=== PATIENT | female | born 1990 | race African-American/Black ===

== ENCOUNTER 2016-08-07 07:09 | Emergency (ER) | payer OTHER ==
[2016-08-07] MEDS ORDERED: ACETAMINOPHEN TAB 500 MG TAB PO STA (08:14)
--- NOTE | 2016-08-07 08:20 | ED ---
URI HPI - General Chief Complaint: Upper Respiratory Infection Stated Complaint: Cough/Dizziness Time Seen by Provider: 08/07/16 08:01 Source: patient, RN notes reviewed Mode of arrival: ambulatory Limitations: no limitations - History of Present Illness Initial Comments: 25-year-old female presents emergency Department with a chief complaint of cough cold and fever. Patient has been sick for the last day or so. She take Motrin yesterday. This we should not treat her fever. She denies any nausea vomiting. Chest feels sore and achy and fatigued. She denies any nausea vomiting this. Patient was concerned due to the continued symptoms such that this reevaluated.Patient denies any recent shortness of breath, chest pain, back pain, abdominal pain, nausea vomiting, numbness or tingling, dysuria or hematuria, constipation or diarrhea, headaches or visual changes, or any other current symptoms. - Related Data Home Medications Medication Instructions Recorded Confirmed Ibuprofen [Motrin] 800 mg PO Q8HR PRN 08/07/16 08/07/16 Previous Rx's Medication Instructions Recorded Oseltamivir [Tamiflu] 75 mg PO Q12HR #10 cap 08/07/16 Allergies Allergy/AdvReac Type Severity Reaction Status Date / Time Sulfa (Sulfonamide Allergy Rash/Hives Verified 08/07/16 07:47 Antibiotics) Review of Systems ROS Statement: Those systems with pertinent positive or pertinent negative responses have been documented in the HPI. ROS Other: All systems not noted in ROS Statement are negative. Past Medical History Past Medical History: No Reported History History of Any Multi-Drug Resistant Organisms: None Reported Past Surgical History: Section Past Psychological History: No Psychological Hx Reported Smoking Status: Never smoker Past Alcohol Use History: Occasional Past Drug Use History: None Reported - Past Family History Mother Family Medical History: No Reported History General Exam - General Exam Comments Initial Comments: 25-year-old female presents with chief complaint cough cold runny nose like symptoms. General exam: Alert, active, comfortable in no apparent distress Head: Normocephalic Eyes: Normal reaction of pupils, equal size, normal range of extraocular motion Ears: normal external ear canals, pink tympanic membranes with normal cone of light Nose: clear with pink turbinates Throat: no erythema or exudates with normal sized tonsils Neck: no masses, no nuchal rigidity Chest: no chest wall deformity Lungs: equal air entry with no crackles or wheeze CVS: S1 and S2 normal with no audible mumurs, regular rhythm Spine: no scoliosis or deformity Skin: no rashes Neurological: No focal deficits, tone is normal in all 4 extremities Limitations: no limitations Course Vital Signs 08/07/16 07:20 Temperature 101.9 F H Pulse Rate 122 H Respiratory 22 Rate Blood Pressure 111/73 O2 Sat by Pulse 98 Oximetry Medical Decision Making - Medical Decision Making 25-year-old female presents emergency Department chief complaint of cough cold runny nose like symptoms. Patient's insulin and chest x-ray review that did not show any acute process however there is most likely does have influenza to the daughter having and we will start her on prophylactic treatment. We discussed with mother and she is in agreement. We discussed with her.. Patient stated he understood all questions were answered. They will be discharged. - Lab Data Lab Results 08/07/16 Range/Units 07:40 Influenza Type A RNA Not Detected (Not Detectd) Influenza Type B (PCR) Not Detected (Not Detectd) - Radiology Data Radiology results: report reviewed, image reviewed Disposition Clinical Impression: Fever, Upper respiratory infection Disposition: HOME SELF-CARE Condition: Stable Instructions: Upper Respiratory Infection (ED) Additional Instructions: Please use medication as discussed. Please follow up with family doctor if symptoms have not improved over the next two days. Please return to the emergency room if your symptoms increase or worsen or for any other concerns. Prescriptions: Oseltamivir [Tamiflu] 75 mg PO Q12HR #10 cap Referrals: None,Stated [Primary Care Provider] - 1-2 days Michelle Butts MD [STAFF PHYSICIAN] - 1-2 days Time of Disposition: 10:03
--- NOTE | 2016-08-07 09:00 | XR ---
EXAMINATION TYPE: XR chest 2V DATE OF EXAM: 08/07/2016 8:55 AM COMPARISON: 10/10/2012 HISTORY: Cough TECHNIQUE: Frontal and lateral views of the chest are obtained. FINDINGS: There is no focal air space opacity, pleural effusion, or pneumothorax seen. The cardiac silhouette size is within normal limits. The osseous structures are intact. IMPRESSION: No acute cardiopulmonary process.
[2016-08-07 10:16] VITALS: BP 101/60; PULSE 115; RESP 18; TEMP 99.6
== END 2016-08-07 10:20 | disposition home or self-care (01) ==
LOC: EC 07:09
DX: J06.9 Acute upper respiratory infection, unspecified (principal); Z88.2 Allergy status to sulfonamides
CPT/HCPCS: 71020; 87502; 99283

== ENCOUNTER 2017-10-10 20:07 | Emergency (ER) | payer OTHER ==
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
[2017-10-10] MEDS ORDERED: ACETAMINOPHEN TAB 500 MG TAB PO STA (21:36)
--- NOTE | 2017-10-10 21:47 | XR ---
EXAMINATION TYPE: XR cervical spine limited DATE OF EXAM: 10/10/2017 COMPARISON: NONE HISTORY: Neck pain TECHNIQUE: 4 views FINDINGS: The vertebra have normal alignment. Posterior elements are intact. Disc spaces are fairly n ormal. Atlantoaxial facet joint is normal. There are no cervical ribs. IMPRESSION: Negative cervical spine exam.
[2017-10-10 22:10] VITALS: BP 118/68; PULSE 100; RESP 17; TEMP 98.3
== END 2017-10-10 22:15 | disposition home or self-care (01) ==
LOC: EC 20:07
DX: O26.892 Other specified pregnancy related conditions, second trimester (principal); M54.2 Cervicalgia; R10.30 Lower abdominal pain, unspecified; Z88.2 Allergy status to sulfonamides; Z3A.23 23 weeks gestation of pregnancy; V89.2XXA Person injured in unspecified motor-vehicle accident, traffic, initial encounter; Y92.410 Unspecified street and highway as the place of occurrence of the external cause
CPT/HCPCS: 72040; 99284

== ENCOUNTER 2017-10-10 22:20 | Outpatient (CLI) | payer OTHER ==
[2017-10-10 23:03] VITALS: BP 115/69; PULSE 96; RESP 16; TEMP 96.2
--- NOTE | 2017-10-17 08:43 | P.MSEPDOC ---
Presenting Problems - Arrival Data Date of Arrival on Unit: 10/10/17 Time of Arrival on Unit: 22:20 Mode of Transport: Ambulatory - Complaint OB-Reason for Admission/Chief Complaint: Other Comment: CVA Medical History - Information : 3 Para: 2 Term: 2 : 0 Abortions: Spontaneous or Elective: 0 Number of Living Children: 2 - Gestational Age Gestational Age by [place] (wks/days): 22 Weeks and 6 Days Review of Systems - Review of Systems Constitutional: No problems Breast: No problems ENT: No problems Cardiovascular: No problems Respiratory: No problems Gastrointestinal: No problems Genitourinary: No problems Musculoskeletal: No problems Neurological: No problems Skin: No problems Vital Signs - Temperature Temperature: 96.2 F Temperature Source: Temporal Artery Scan - Pulse Right Pulse Rate: 96 Pulse Assessment Method: Pulse Oximetry - Respirations Respiratory Rate: 16 Oxygen Delivery Method: Room Air O2 Sat by Pulse Oximetry: 100 - Blood Pressure Right Arm Blood Pressure: 115/69 Blood Pressure Mean: 84 Blood Pressure Source: Automatic Cuff Medical Screen Scoring (Pre) - Cervical Exam Dilation: Exam Deferred Effacement: Exam Deferred Membranes: Intact - Uterine Contractions Frequency: N/A Duration: N/A Intensity: N/A - Maternal Vital Signs Maternal Temperature: N/A Maternal Blood Pressure: N/A Signs of Preeclampsia: N/A Maternal Respirations: N/A - Pain Assessment Pain Location and Character: Lower, Back Pain Scale Used: Numeric (1 - 10) Pain Intensity: 1 Pain Management Goal: 0 Pain Description: Aching, Sore Pain Frequency: Intermittent Pain Duration Units: Hours Pain Behavior: Vocalization Pain Aggravating Factors: Position Non-Pharmacological Interventions: Heat, Position/Reposition, Relaxation Technique - Maternal Trauma Maternal Trauma: N/A - Total Score Total Score (Pre): 0 - Level of Risk Level of Risk: N/A Physician Notification (Pre) - Physician Notified Physician Notified Date: 10/10/17 Physician Notified Time: 22:46 Physician/Practitioner Notifed:: Dr. Vera Spoke With: Dr. Vera New Order Received: Yes (discharge home with follow up instructions.) Medical Screen Scoring (Post) - Cervical Exam Dilation: Exam Deferred Effacement: Exam Deferred Membranes: Intact - Uterine Contractions Frequency: N/A Duration: N/A Intensity: N/A - Maternal Vital Signs Maternal Temperature: N/A Maternal Blood Pressure: N/A Signs of Preeclampsia: N/A Maternal Respirations: N/A - Pain Assessment Pain Location and Character: Lower, Back Pain Scale Used: Numeric (1 - 10) Pain Intensity: 1 Pain Management Goal: 0 Pain Description: *Acute, Aching, Sore Pain Frequency: Intermittent Pain Duration Units: Hours Pain Behavior: Vocalization Pain Aggravating Factors: Position Non-Pharmacological Interventions: Heat, Position/Reposition - Maternal Trauma Maternal Trauma: N/A - Total Score Total Score (Post): 0 - Post Treatment Level of Risk Post Treatment Level of Risk: N/A Physician Notification (Post) - Physician Notified Physician Notified Date: 10/10/17 Physician Notified Time: 22:46 Physician/Practitioner Notified:: Dr. vera Spoke With: Dr. vera New Order Received: Yes (discharge home with instructions.) Disposition - Disposition OB Disposition: Discharge to home Discharge Date: 10/10/17 Discharge Time: 22:49 I agree with the RN Medical Screening Exam: Yes Risk & Benefit of care provided described in d/c instruction: Yes Diagnosis: LOW BACK PAIN
== END 2017-10-10 22:49 | disposition home or self-care (01) ==
LOC: FBPOP 22:20
PROVIDERS: ATTEND Obstetrics & Gynecology Obstetrics
DX: O99.89 Other specified diseases and conditions complicating pregnancy, childbirth and the puerperium (principal); M54.5 Low back pain; Z3A.22 22 weeks gestation of pregnancy
CPT/HCPCS: 99213

== ENCOUNTER 2018-02-03 10:05 | Inpatient (IN) | payer OTHER ==
[2018-01-30 14:34] VITALS: BMI 34.5
[2018-02-03] MEDS ORDERED: ceFAZolin IN SWFI 2 GM/20 ML SYRINGE IVP ONE (10:20)
[2018-02-03] MEDS ORDERED: CITRIC ACID-SODIUM CITRATE 15 ML CUP PO ONE (10:20)
[2018-02-03 11:02] LABS: Basophils % (A) 0 %; Eosinophils # (A) 0.2 k/uL (0-0.7); Eosinophils % (A) 1 %; HGB 9.9 gm/dL (11.4-16.0); Lymphocytes # (A) 1.5 k/uL (1.0-4.8); Lymphocytes % (A) 11 %; MCH 27.3 pg (25.0-35.0); MCV 82.7 fL (80.0-100.0); Mean Platelet Volume 7.1; Monocytes # (A) 0.7 k/uL (0-1.0); Monocytes % (A) 5 %; Neutrophils # (A) 10.9 k/uL (1.3-7.7); Neutrophils % (A) 80 %; Platelet Count 260 k/uL (150-450); RBC 3.62 m/uL (3.80-5.40); WBC 13.5 k/uL (3.8-10.6)
[2018-02-03] MEDS ORDERED: NALBUPHINE 10 MG/ML VIAL (10ML MDV) ONE (12:03)
[2018-02-03] MEDS ORDERED: ONDANSETRON 4 MG/2 ML VIAL ONE (12:03)
[2018-02-03] MEDS ORDERED: KETOROLAC 30 MG/ML 1 ML VIAL ONE (12:03)
[2018-02-03] MEDS ORDERED: OXYTOCIN 10 UNIT/ML 1 ML VIAL ONE (12:03)
[2018-02-03] MEDS ORDERED: MORPHINE SULFATE (PF) 0.3 MG/0.3 ML SYR ONE (12:03)
[2018-02-03] MEDS ORDERED: DEXAMETHASONE SOD PHOS (MDV) 100 MG/10 ML VIAL ONE (12:03)
[2018-02-03] MEDS ORDERED: PHENYLEPHRINE-0.9% NACL SYG 1 MG/10 ML SYRINGE ONE (12:03)
--- NOTE | 2018-02-03 12:15 | P.HPOB ---
History of Present Illness H&P Date: 02/03/18 Chief Complaint: Here for elective repeat and tubal ligation This is a 27 rolled white female 3 para 2002 EDC 02/07/2018 at 39-3/7 weeks' gestation. Patient has had 2 previous sections, presents today for repeat at term with tubal ligation. Fetus is been active throughout the . She denies uterine bleeding or fluid leakage. Past medical history is significant for exercise-induced asthma. Past surgical history C-sections 2011 2015. Current medications vitamins daily. ALLERGIES include seasonal ALLERGIES and Bactrim to which reports hives. Family history is significant for diabetes. Social history patient is single, her boyfriend is present and involved. She has never been a smoker. She denies alcohol or drug use. history significant for blood type O+, rubella status immune. [place] strep cultures are positive. One-hour Glucola 132. Gonorrhea and chlamydia cultures, HIV testing, urine culture, hepatitis B surface antigen all negative. On exam this is a pleasant black female who is 5 foot 1-1/2 inches, 186 pounds, vital signs are stable and she is afebrile. The general physical exam is within normal limits. heart rate is consistent with reactive NST. Impression: 39-3/7 weeks intrauterine , here for repeat low transverse section and tubal ligation. Group B strep cultures positive. Plan: Antibiotics have been given. We will proceed with repeat low transverse section and tubal ligation per her request. All questions addressed. Review of Systems Constitutional: Reports as per HPI Past Medical History Past Medical History: No Reported History, Asthma History of Any Multi-Drug Resistant Organisms: None Reported Past Surgical History: Section Additional Past Surgical History / Comment(s): C-SEC X 2 Past Anesthesia/Blood Transfusion Reactions: Motion Sickness, Postoperative Nausea & Vomiting (PONV) Past Psychological History: No Psychological Hx Reported Smoking Status: Never smoker Past Alcohol Use History: Occasional Additional Past Alcohol Use History / Comment(s): NONE DURING Past Drug Use History: None Reported - Past Family History Mother Family Medical History: No Reported History Medications and Allergies Home Medications Medication Instructions Recorded Confirmed Type Pnv No.95/Ferrous Fum/Folic AC 1 tab PO DAILY 10/10/17 02/03/18 History [ Multivitamin Tablet] Allergies Allergy/AdvReac Type Severity Reaction Status Date / Time Sulfa (Sulfonamide Allergy Rash/Hives Verified 02/03/18 10:19 Antibiotics) Exam Vital Signs Temp Pulse Resp BP Pulse Ox 02/03/18 10:26 96.4 F L 118 H 18 136/82 98 Intake and Output 02/02/18 02/03/18 02/03/18 22:59 06:59 14:59 Other: Weight 84.368 kg See dictation under HPI please Results Result Diagrams: 02/03/18 10:45 Abnormal Lab Results - Last 24 Hours (Table) 02/03/18 Range/Units 10:45 WBC 13.5 H (3.8-10.6) k/uL RBC 3.62 L (3.80-5.40) m/uL Hgb 9.9 L (11.4-16.0) gm/dL Hct 30.0 L (34.0-46.0) % Neutrophils # 10.9 H (1.3-7.7) k/uL Assessment and Plan Plan: Here for repeat low transverse section and tubal ligation with Filshie clips. Antibiotics given for positive group B strep status. Time with Patient: Less than 30
[2018-02-03] MEDS ORDERED: NALOXONE 0.4 MG/ML 1 ML VIAL IV PRN ×2 (12:42→12:51)
[2018-02-03] MEDS ORDERED: MORPHINE SULFATE 4 MG/ML SYRINGE IVP PRN (12:42)
[2018-02-03] MEDS ORDERED: diphenhydrAMINE 50 MG/ML 1 ML VIAL IVP PRN ×3 (12:42→12:51)
[2018-02-03] MEDS ORDERED: ONDANSETRON 4 MG/2 ML VIAL IVP PRN ×2 (12:42→12:51)
[2018-02-03] MEDS ORDERED: diphenhydrAMINE 50 MG CAP PO PRN (12:51)
[2018-02-03] MEDS ORDERED: METOCLOPRAMIDE 5 MG/ML 2 ML VIAL IVP PRN (12:51)
[2018-02-03] MEDS ORDERED: ZOLPIDEM 5 MG TAB PO PRN (12:51)
[2018-02-03] MEDS ORDERED: diphenhydrAMINE 25 MG CAP PO PRN (12:51)
--- NOTE | 2018-02-03 12:51 | P.OP ---
Date of Procedure: 02/03/18 Preoperative Diagnosis: 39-3/7 weeks intrauterine , 2 previous sections, positive group B strep cultures, undesired fertility Postoperative Diagnosis: Liveborn male , nuchal cord 1, normal-appearing tubes and ovaries bilaterally Procedure(s) Performed: Repeat low transverse section, tubal ligation Anesthesia: spinal Surgeon: Gogo Mcmanus Manager [employer]: Alejandro Phipps Estimated Blood Loss (ml): 600 IV fluids (ml): 1,000 Urine output (ml): 200 Pathology: none sent Condition: stable Disposition: PACU Description of Procedure: Antibiotics are given. Roth catheter is placed to direct drainage. Patient is brought back to the operating suite where a spinal analgesia with Duramorph is provided. The abdomen is prepped and draped in the usual sterile fashion. The appropriate timeout is performed to assure proper patient and procedural identification. The analgesia is checked and noted to be adequate. A repeat low transverse skin incision is made in this is carried down through the subcutaneous tissue to the fascia. Fascia is isolated, scored and extended bilaterally with curved Foster scissors. Peritoneum is next identified and incised, there is no bowel or bladder involvement. Bladder flap is created with Metzenbaum scissors and at all times the bladder is Well from the operative field to avoid bladder and/or ureteral injury. The lower uterine segment is noted to be quite thin. A repeat low transverse uterine incision is made in this is extended bluntly. Artificial amniorrhexis reveals clear fluid. Infant's head is delivered in the occiput anterior position and there is a nuchal cord 1 that is also reduced. The shoulders are easily delivered and the patient is officially delivered of a liveborn male at 12-3 hours. Umbilical cord is doubly clamped and ligated, he is handed to waiting nurses for evaluation where scores of 9 and 9 at one and 5 minutes respectively were given. The placenta delivers manually, it is inspected and noted to be intact with trivascular cord at 1224 hours. At this time the uterus is externalized. It is swept clean with a sterile sponge to avoid any retained products of conception. The uterus is closed in a one step full-thickness running locking stitch of 0 Vicryl for excellent reapproximation and hemostasis. Bilateral tubes and ovaries are inspected and noted to be normal. Filshie clips are placed in the isthmic portion of both tubes, with care to traverse the entire diameter of the tubes into the mesal salpinx. Please note that fimbriated ends are identified for proper placement. Uterus is then is back into the abdominal cavity after suction with guard is used to clear out residual fluid. Bilateral gutters are inspected and cleaned. Once again hemostasis is noted to be excellent. Peritoneum was allowed close by secondary intention. Fascia is closed in a running stitch of 0 Vicryl with over ligation in the midline. Subcutaneous tissue is irrigated, clean and dry. The skin is closed with a 4-0 undyed Monocryl stitch in a subcuticular fashion for excellent reapproximation. Steri-Strips and Mastisol are applied to the wound. Roth is noted to be draining clear urine. All sponge needle and enhancement counts are correct at the end of the procedure. Patient is brought back to recovery room in excellent condition with stable vital signs including blood pressure 120/62, pulse 97, 100% O2 saturation. weighs 3790 g or 8 lbs. 6 oz. They are requesting circumcision further infant son.
[2018-02-03] MEDS: LACTATED RINGERS 1,000 ML IV SCH (15:52)
[2018-02-03] MEDS: KETOROLAC 30 MG/ML 1 ML VIAL IVP PRN (19:30)
[2018-02-03] MEDS: SENNOSIDES-DOCUSATE SODIUM 1 EACH TAB PO SCH (19:31)
[2018-02-04] MEDS: LACTATED RINGERS 1,000 ML IV SCH ×2 (00:30→00:38)
[2018-02-04] MEDS: KETOROLAC 30 MG/ML 1 ML VIAL IVP PRN (01:57)
--- NOTE | 2018-02-04 06:21 | P.PN ---
Progress Note - Text Progress Note Date: 02/04/18 20 61 female status post section with Duramorph spinal. Postop day 1. Patient doing well resting comfortably minimal pruritus, ambulating well. No motor/sensory deficits
[2018-02-04 07:45] LABS: Basophils % (A) 0 %; Eosinophils % (A) 0 %; HCT 28.1 % (34.0-46.0); HGB 8.7 gm/dL (11.4-16.0); Hypochromasia Slight; Lymphocytes # (A) 1.5 k/uL (1.0-4.8); Lymphocytes % (A) 10 %; MCH 26.5 pg (25.0-35.0); MCV 85.4 fL (80.0-100.0); Mean Platelet Volume 7.9; Monocytes % (A) 6 %; Neutrophils # (A) 12.2 k/uL (1.3-7.7); Neutrophils % (A) 82 %; Platelet Count 237 k/uL (150-450); RBC 3.29 m/uL (3.80-5.40); RDW 15.3 % (11.5-15.5); WBC 14.9 k/uL (3.8-10.6)
[2018-02-04] MEDS: ACETAMINOPHEN TAB 325 MG TAB PO PRN ×3 (07:48→16:04)
[2018-02-04] MEDS: SENNOSIDES-DOCUSATE SODIUM 1 EACH TAB PO SCH ×2 (07:49→19:48)
--- NOTE | 2018-02-04 09:34 | P.PN ---
Subjective Progress Note Date: 02/04/18 Positive flatus, pain well controlled, no complaints. Objective - Vital Signs Vital signs: Vital Signs Temp 97.9 F 02/04/18 08:00 Pulse 72 02/04/18 08:00 Resp 14 02/04/18 08:00 BP 105/63 02/04/18 08:00 Pulse Ox 99 02/04/18 05:00 Intake & Output 02/03/18 02/04/18 02/04/18 18:59 06:59 18:59 Intake Total 75 100 Output Total 200 2300 400 Balance -125 -2200 -400 Weight 84.368 kg Intake: Oral 75 100 Output: Urine 2300 400 Uretheral (Roth) 800 Emesis 200 - Constitutional General appearance: Present: average body habitus, cooperative - EENT Eyes: Present: PERRLA ENT: Present: hearing grossly normal - Neck Neck: Present: normal ROM - Respiratory Respiratory: bilateral: CTA - Cardiovascular Rhythm: regular - Gastrointestinal Gastrointestinal Comment(s): Fundus firm, mobile, symmetric, 18 week size. - Genitourinary Genitourinary Comment(s): Incision clean and dry, intact, Steri-Strips applied. - Neurologic Neurologic: Present: CNII-XII intact - Musculoskeletal Musculoskeletal: Present: gait normal, strength equal bilaterally - Psychiatric Psychiatric: Present: A&O x's 3, appropriate affect, intact judgment & insight - Labs CBC & Chem 7: 02/04/18 07:30 Labs: Abnormal Lab Results - Last 24 Hours (Table) 02/03/18 02/04/18 Range/Units 10:45 07:30 WBC 13.5 H 14.9 H (3.8-10.6) k/uL RBC 3.62 L 3.29 L (3.80-5.40) m/uL Hgb 9.9 L 8.7 L (11.4-16.0) gm/dL Hct 30.0 L 28.1 L (34.0-46.0) % Neutrophils # 10.9 H 12.2 H (1.3-7.7) k/uL Assessment and Plan Assessment: Doing well postoperative day #1 Plan: Continue postoperative care. Circumcision performed. Likely discharge home tomorrow. Time with Patient: Less than 30
[2018-02-04] MEDS: LORATADINE-PSEUDOEPH 5-120 MG 1 EACH TAB.ER.12H PO PRN (11:34)
[2018-02-04] MEDS: IBUPROFEN 600 MG TAB PO PRN (17:04)
[2018-02-04] MEDS: HYDROcodone/APAP 5-325MG 1 EACH TAB PO PRN ×2 (18:35→23:36)
[2018-02-05] MEDS: LORATADINE-PSEUDOEPH 5-120 MG 1 EACH TAB.ER.12H PO PRN (00:29)
[2018-02-05] MEDS: IBUPROFEN 600 MG TAB PO PRN ×2 (06:37→23:28)
--- NOTE | 2018-02-05 08:23 | P.PN ---
Subjective Progress Note Date: 02/05/18 Principal diagnosis: Postoperative day number 2 Positive flatus, shoulder pain. Abdomen softly distended. Objective - Vital Signs Vital signs: Vital Signs Temp 97.7 F 02/05/18 07:49 Pulse 74 02/05/18 07:49 Resp 18 02/05/18 07:49 BP 136/84 02/05/18 07:49 Pulse Ox 99 02/04/18 05:00 Intake & Output 02/04/18 02/05/18 02/05/18 18:59 06:59 18:59 Output Total 1300 Balance -1300 Output: Urine 1300 Other: # Voids 2 - Constitutional General appearance: Present: average body habitus, cooperative - EENT Eyes: Present: PERRLA ENT: Present: hearing grossly normal - Neck Neck: Present: normal ROM - Respiratory Respiratory: bilateral: CTA - Cardiovascular Rhythm: regular - Gastrointestinal Gastrointestinal Comment(s): Abdomen softly distended, tympanic. Active bowel sounds. Fundus firm, midline , at the umbilicus, symmetric and nontender. General gastrointestinal: Present: normal bowel sounds - Integumentary Integumentary: Present: normal - Neurologic Neurologic: Present: CNII-XII intact - Musculoskeletal Musculoskeletal: Present: gait normal, strength equal bilaterally - Psychiatric Psychiatric: Present: A&O x's 3, appropriate affect, intact judgment & insight - Labs CBC & Chem 7: 02/04/18 07:30 Assessment and Plan Assessment: Postoperative day #2, doing well. Anemia noted. Plan: Begin ferrous sulfate twice daily. Abdominal binder. Continue postoperative care. Likely discharge home tomorrow. Time with Patient: Less than 30
[2018-02-05] MEDS: ACETAMINOPHEN TAB 325 MG TAB PO PRN ×2 (10:21→19:59)
[2018-02-05] MEDS: SENNOSIDES-DOCUSATE SODIUM 1 EACH TAB PO SCH ×2 (10:21→19:59)
[2018-02-05] MEDS ORDERED: IBUPROFEN 800 MG TAB PO PRN (15:18)
[2018-02-05 15:45] LABS: Basophils % (A) 0 %; Eosinophils # (A) 0.3 k/uL (0-0.7); Eosinophils % (A) 2 %; HCT 32.6 % (34.0-46.0); HGB 10.2 gm/dL (11.4-16.0); Hypochromasia Slight; Lymphocytes # (A) 1.3 k/uL (1.0-4.8); Lymphocytes % (A) 8 %; MCH 26.9 pg (25.0-35.0); MCHC 31.2 g/dL (31.0-37.0); MCV 86.2 fL (80.0-100.0); Monocytes # (A) 0.9 k/uL (0-1.0); Monocytes % (A) 6 %; Neutrophils # (A) 13.1 k/uL (1.3-7.7); Neutrophils % (A) 83 %; Platelet Count 268 k/uL (150-450); RBC 3.78 m/uL (3.80-5.40); RDW 15.1 % (11.5-15.5); WBC 15.7 k/uL (3.8-10.6)
[2018-02-05] MEDS: SIMETHICONE 80 MG CHEWABLE PO SCH ×2 (15:52→20:05)
[2018-02-05 15:55] LABS: Potassium 4.2 mmol/L (3.5-5.1)
[2018-02-05 16:17] VITALS: RESP 16
[2018-02-05] MEDS ORDERED: FERROUS SULFATE 325 MG TAB PO SCH (17:30)
[2018-02-06] MEDS: ACETAMINOPHEN TAB 325 MG TAB PO PRN ×2 (03:19→08:41)
[2018-02-06] MEDS: IBUPROFEN 600 MG TAB PO PRN (06:11)
--- NOTE | 2018-02-06 07:40 | P.DS ---
Providers Date of admission: 02/03/18 10:05 Expected date of discharge: 02/06/18 Attending physician: Gogo Mcmanus Primary care physician: Stated None Hospital Course: This is a 25-year-old white female 3 para 2002 EDC 02/07/2018 who presented at 39-3/7 weeks' gestation. Patient had a history of 2 previous sections and plan was for repeat section with tubal ligation. was essentially unremarkable, group B strep cultures positive, blood type O+, rubella status immune. Please see my dictated history and physical for details. She underwent a repeat low transverse section with tubal ligation. Surgery was unremarkable, estimated blood loss 600 mL's. There was a nuchal cord 1 around the neck of a liveborn male . His scores were 9 and 9 at one and 5 minutes respectively. He weighed 3790 g or 8 lbs. 6 oz. Please see my dictated operative note for details. This morning the patient is doing well. She had a mild postoperative ileus that has resolved. She is passing flatus and has had 2 small bowel movements. She is tolerating regular food and pain is well controlled using Motrin products. Her bleeding is minimal, incision is clean and dry and intact with Steri-Strips applied. Fundus is firm and in the midline, symmetric and 18 week size. Fonda infant is doing well and has been circumcised. Patient is therefore being discharged home this morning in very good condition. She will follow-up with me in the office in 2 weeks for incision check. I have reminded her no intercourse, tampons or douching. She will use over-the- counter ibuprofen, 200 mg pills, 3 every 6 hours as needed. I've asked her to call with any fevers shakes or chills, foul smelling or copious lochia, with the passage of large blood clots, with any pain not alleviated by over-the- counter Motrin, or indeed with any concerns. Patient Condition at Discharge: Good Plan - Discharge Summary Discharge Rx Participant: Yes New Discharge Prescriptions: No Action Pnv No.95/Ferrous Fum/Folic AC [ Multivitamin Tablet] 1 tab PO DAILY Discharge Medication List Pnv No.95/Ferrous Fum/Folic AC [ Multivitamin Tablet] 1 tab PO DAILY [History] Follow up Appointment(s)/Referral(s): Gogo Mcmanus MD [STAFF PHYSICIAN] - 2 Weeks Discharge Disposition: HOME SELF-CARE
[2018-02-06 08:39] VITALS: BP 126/77; PULSE 80; TEMP 97.7
[2018-02-06] MEDS: SENNOSIDES-DOCUSATE SODIUM 1 EACH TAB PO SCH (08:40)
--- NOTE | 2018-02-10 11:35 | CDI ---
Last Revision, May 2017 Documentation Clarification Form Date: 02/10/18 From: Brenda Fink Lydia Hernandez, [employer] Hours-8:30 am & 5 pm Tommy Admit Date: 02/03/2018 10:05:00 AM Patient Name: Alisson Dickinson Visit Number: [id number] Discharge Date: 02/06/18 ATTENTION: The Clinical Documentation Specialists (CDI) and [facility] Coding Staff appreciate your assistance in clarifying documentation. Please respond to the clarification below the line at the bottom and electronically sign. The CDI & [facility] Coding staff will review the response and follow-up if needed. Please note: Queries are made part of the Legal Health Record. If you have any questions, please contact the author of this message via ITS. Gogo Mcleod MD Mild post-operative ileus is documented in the discharge summary. Patients Admitting Diagnosis: repeat c/s Post-Operative Diagnosis: repeat c/s Procedure performed: C/S No NGT, no x-rays, took 100% on ate 100% of breakfast, 75% of lunch with an emesis and then placed on clear liquid diet. BS and flatus documented in each progress note. In order to accurately reflect this patients severity of illness, please clarify if the post-operative diagnosis of ileus is: An expected post-procedural or post-surgical condition; Integral to the procedure; Inherent to the procedure; An unexpected post-procedural or post-surgical condition related to surgical care; Other, please specify Unable to determine Please continue to document in your progress notes and discharge summary in order to capture severity of illness and risk of mortality. Include clinical findings that support your diagnosis. _Mild post operative ileus diagnosis was suggested secondary to clinical presentation, distended abdomen, tympanic to percussion, and complaint of abdomenal pain eventually alleviated by passage of flatus and air along with application of an abdomenal binder. Thank you MTDD
== END 2018-02-06 12:00 | disposition home or self-care (01) | DRG 765 ==
LOC: 4FBP 10:05
PROVIDERS: ADMIT Obstetrics & Gynecology; ATTEND Obstetrics & Gynecology
PROC: 0UL70CZ Occlusion of Bilateral Fallopian Tubes with Extraluminal Device, Open Approach (ICD-10-PCS; 2018-02-03)
PROC: 10D00Z1 Extraction of Products of Conception, Low, Open Approach (ICD-10-PCS; principal; 2018-02-03 12:03)
DX: O34.211 Maternal care for low transverse scar from previous cesarean delivery (principal); K91.89 Other postprocedural complications and disorders of digestive system; K56.7 Ileus, unspecified; D64.9 Anemia, unspecified; O99.02 Anemia complicating childbirth; O69.81X0 Labor and delivery complicated by cord around neck, without compression, not applicable or unspecified; O99.52 Diseases of the respiratory system complicating childbirth; O99.824 Streptococcus B carrier state complicating childbirth; O75.82 Onset (spontaneous) of labor after 37 completed weeks of gestation but before 39 completed weeks gestation, with delivery by (planned) cesarean section; J30.2 Other seasonal allergic rhinitis; N85.8 Other specified noninflammatory disorders of uterus; L29.9 Pruritus, unspecified; Z30.2 Encounter for sterilization; Z37.0 Single live birth; Z3A.39 39 weeks gestation of pregnancy; Z88.2 Allergy status to sulfonamides; Z91.048 Other nonmedicinal substance allergy status; Z83.3 Family history of diabetes mellitus; Z79.899 Other long term (current) drug therapy
CPT/HCPCS: 80051; 85025; 86850; 86900; 86901; 94760

== ENCOUNTER 2018-11-19 08:09 | Emergency (ER) | payer OTHER ==
[2018-11-19 08:19] VITALS: RESP 18; TEMP 98.1
[2018-11-19] MEDS ORDERED: SODIUM CHLORIDE 0.9% 1,000 ML IV STA (08:28)
[2018-11-19] MEDS ORDERED: METOCLOPRAMIDE 5 MG/ML 2 ML VIAL IVP STA (08:33)
[2018-11-19] MEDS ORDERED: MAG HYDROX/AL HYDROX/SIMETH 30 ML, HYOSCYAMINE ELIXIR 10 ML, CIMETIDINE HCL 300 MG, LID... PO STA ×4 (08:39)
--- NOTE | 2018-11-19 08:42 | ED ---
General Adult HPI - General Chief complaint: Nausea/Vomiting/Diarrhea Stated complaint: NVD Time Seen by Provider: 11/19/18 08:23 Source: patient Mode of arrival: ambulatory Limitations: no limitations - History of Present Illness Initial comments: Dictation was produced using nPicker dictation software. please excuse any grammatical, word or spelling errors. Chief Complaint: 28-year-old female presents with epigastric abdominal pain, nausea and vomiting. History of Present Illness: Is a 28-year-old female presents with epigastric abdominal pain, nausea and vomiting. Patient reports that she woke up with the symptoms. States she had an episode similar to this a couple weeks ago. Patient had episode of diarrhea at that time. Patient has been having flulike illness for the last 2-3 days. Patient reports that her emesis is non-bloody however does have some bilious characteristic to it. She does report that the pain is epigastric. Denies any radiation of symptoms. Denies any constitutional symptoms. No overt sick contacts. History of tubal ligation she is 8 months . The ROS documented in this emergency department record has been reviewed and confirmed by me. Those systems with pertinent positive or negative responses have been documented in the HPI. All other systems are other negative and/or noncontributory. PHYSICAL EXAM: General Impression: Alert and oriented x3, not in acute distress HEENT: Normocephalic atraumatic, extra-ocular movements intact, pupils equal and reactive to light bilaterally, mucous membranes moist. Cardiovascular: Heart regular rate and rhythm, S1&S2 audible, no murmurs, rubs or gallops Chest: Lungs clear to auscultation bilaterally, no rhonchi, no wheeze, no rales Abdomen: Bowel sounds present, abdomen soft, mild epigastric tenderness to palpation, non-distended, no organomegaly Musculoskeletal: Pulses present and equal in all extremities, no peripheral edema Motor: no focal deficits noted Neurological: CN II-XII grossly intact, no focal motor or sensory deficits noted Skin: Intact with no visualized rashes Psych: Normal affect and mood ED course: 28-year-old female clinical presentation consistent with gastroenteritis. Heart rate of 115, worse vital signs within acceptable limits. Laboratory evaluation obtained. Leukocytosis of 15.9 with secondary to stress. Metabolic panel is unremarkable. Urinalysis negative. test is negative. Abdominal x-ray shows findings to suggest ileus however patient is having multiple diarrhea episodes. Clinically speaking patient's symptoms reflective of vital gastroenteritis. Patient given intravenous fluids and antinausea medications per she is observed in emergency department for several hours. Patient reevaluated with movement of symptoms. Patient discharged. She is counseled on adequate fluid hydration. Patient's symptoms are likely self- limiting and should improve over the next couple days. Patient sent home with antinausea medications. - Related Data Previous Rx's Medication Instructions Recorded Ondansetron Odt [Zofran Odt] 4 mg PO Q8HR PRN #12 tab 11/19/18 Allergies Allergy/AdvReac Type Severity Reaction Status Date / Time Sulfa (Sulfonamide Allergy Rash/Hives Verified 11/19/18 08:53 Antibiotics) Review of Systems ROS Statement: Those systems with pertinent positive or pertinent negative responses have been documented in the HPI. ROS Other: All systems not noted in ROS Statement are negative. Past Medical History Past Medical History: Asthma History of Any Multi-Drug Resistant Organisms: None Reported Past Surgical History: Section, Tubal Ligation Additional Past Surgical History / Comment(s): C-SEC X 3 Past Anesthesia/Blood Transfusion Reactions: Motion Sickness, Postoperative Nausea & Vomiting (PONV) Past Psychological History: No Psychological Hx Reported Smoking Status: Never smoker Past Alcohol Use History: Occasional Past Drug Use History: None Reported - Past Family History Mother Family Medical History: No Reported History General Exam Limitations: no limitations Course Vital Signs 11/19/18 11/19/18 11/19/18 08:17 09:19 10:13 Temperature 98.1 F Pulse Rate 115 H 94 92 Respiratory 18 18 Rate Blood Pressure 113/72 105/72 O2 Sat by Pulse 98 100 Oximetry Medical Decision Making - Lab Data Result diagrams: 11/19/18 08:50 11/19/18 08:50 Lab Results 11/19/18 11/19/18 11/19/18 Range/Units 08:50 08:50 08:50 WBC 15.9 H (3.8-10.6) k/uL RBC 4.76 (3.80-5.40) m/uL Hgb 13.4 (11.4-16.0) gm/dL Hct 40.6 (34.0-46.0) % MCV 85.4 (80.0-100.0) fL MCH 28.3 (25.0-35.0) pg MCHC 33.1 (31.0-37.0) g/dL RDW 13.6 (11.5-15.5) % Plt Count 371 (150-450) k/uL Neutrophils % 89 % Lymphocytes % 5 % Monocytes % 3 % Eosinophils % 1 % Basophils % 0 % Neutrophils # 14.2 H (1.3-7.7) k/uL Lymphocytes # 0.9 L (1.0-4.8) k/uL Monocytes # 0.5 (0-1.0) k/uL Eosinophils # 0.2 (0-0.7) k/uL Basophils # 0.0 (0-0.2) k/uL Sodium 141 (137-145) mmol/L Potassium 4.2 (3.5-5.1) mmol/L Chloride 105 (98-107) mmol/L Carbon Dioxide 24 (22-30) mmol/L Anion Gap 12 mmol/L BUN 10 (7-17) mg/dL Creatinine 0.63 (0.52-1.04) mg/dL Est GFR (CKD-EPI)AfAm >90 (>60 ml/min/1.73 sqM) Est GFR (CKD-EPI)NonAf >90 (>60 ml/min/1.73 sqM) Glucose 98 (74-99) mg/dL Calcium 9.5 (8.4-10.2) mg/dL Total Bilirubin 0.5 (0.2-1.3) mg/dL AST 20 (14-36) U/L ALT 16 (9-52) U/L Alkaline Phosphatase 85 (38-126) U/L Total Protein 8.2 (6.3-8.2) g/dL Albumin 4.9 (3.5-5.0) g/dL Lipase 53 (23-300) U/L Urine Color Urine Appearance (Clear) Urine pH (5.0-8.0) Ur Specific [place] (1.001-1.035) Urine Protein (Negative) Urine Glucose (UA) (Negative) Urine Ketones (Negative) Urine Blood (Negative) Urine Nitrite (Negative) Urine Bilirubin (Negative) Urine Urobilinogen (<2.0) mg/dL Ur Leukocyte Esterase (Negative) Urine HCG, Qual Not Detected (Not Detectd) 11/19/18 Range/Units 08:50 WBC (3.8-10.6) k/uL RBC (3.80-5.40) m/uL Hgb (11.4-16.0) gm/dL Hct (34.0-46.0) % MCV (80.0-100.0) fL MCH (25.0-35.0) pg MCHC (31.0-37.0) g/dL RDW (11.5-15.5) % Plt Count (150-450) k/uL Neutrophils % % Lymphocytes % % Monocytes % % Eosinophils % % Basophils % % Neutrophils # (1.3-7.7) k/uL Lymphocytes # (1.0-4.8) k/uL Monocytes # (0-1.0) k/uL Eosinophils # (0-0.7) k/uL Basophils # (0-0.2) k/uL Sodium (137-145) mmol/L Potassium (3.5-5.1) mmol/L Chloride (98-107) mmol/L Carbon Dioxide (22-30) mmol/L Anion Gap mmol/L BUN (7-17) mg/dL Creatinine (0.52-1.04) mg/dL Est GFR (CKD-EPI)AfAm (>60 ml/min/1.73 sqM) Est GFR (CKD-EPI)NonAf (>60 ml/min/1.73 sqM) Glucose (74-99) mg/dL Calcium (8.4-10.2) mg/dL Total Bilirubin (0.2-1.3) mg/dL AST (14-36) U/L ALT (9-52) U/L Alkaline Phosphatase (38-126) U/L Total Protein (6.3-8.2) g/dL Albumin (3.5-5.0) g/dL Lipase (23-300) U/L Urine Color Yellow Urine Appearance Clear (Clear) Urine pH 5.5 (5.0-8.0) Ur Specific [place] 1.030 (1.001-1.035) Urine Protein Trace H (Negative) Urine Glucose (UA) Negative (Negative) Urine Ketones 2+ H (Negative) Urine Blood Negative (Negative) Urine Nitrite Negative (Negative) Urine Bilirubin Negative (Negative) Urine Urobilinogen <2.0 (<2.0) mg/dL Ur Leukocyte Esterase Negative (Negative) Urine HCG, Qual (Not Detectd) Disposition Clinical Impression: Gastroenteritis Disposition: HOME SELF-CARE Condition: Good Instructions (If sedation given, give patient instructions): Acute Nausea and Vomiting (ED), Acute Diarrhea (ED) Prescriptions: Ondansetron Odt [Zofran Odt] 4 mg PO Q8HR PRN #12 tab PRN Reason: Nausea Is patient prescribed a controlled substance at d/c from ED?: No Referrals: None,Stated [Primary Care Provider] - 1-2 days Time of Disposition: 10:27
[2018-11-19 09:07] LABS: Appearance,Urine Clear (Clear); Bilirubin,Urine Negative (Negative); Blood,Urine Negative (Negative); Color,Urine Yellow; Glucose,Urine (UA) Negative (Negative); Ketones,Urine 2+ (Negative); Leukocyte Esterase,Urine Negative (Negative); Nitrite,Urine Negative (Negative); PH, Urine 5.5 (5.0-8.0); Protein,Urine Trace (Negative); Urobilinogen,Urine <2.0 mg/dL (<2.0)
[2018-11-19 09:09] LABS: Basophils % (A) 0 %; Eosinophils # (A) 0.2 k/uL (0-0.7); Eosinophils % (A) 1 %; HCT 40.6 % (34.0-46.0); HGB 13.4 gm/dL (11.4-16.0); Lymphocytes # (A) 0.9 k/uL (1.0-4.8); Lymphocytes % (A) 5 %; MCH 28.3 pg (25.0-35.0); MCHC 33.1 g/dL (31.0-37.0); MCV 85.4 fL (80.0-100.0); Mean Platelet Volume 6.9; Monocytes # (A) 0.5 k/uL (0-1.0); Monocytes % (A) 3 %; Neutrophils # (A) 14.2 k/uL (1.3-7.7); Neutrophils % (A) 89 %; Platelet Count 371 k/uL (150-450); RBC 4.76 m/uL (3.80-5.40); RDW 13.6 % (11.5-15.5); WBC 15.9 k/uL (3.8-10.6)
[2018-11-19 09:17] LABS: ALT 16 U/L (9-52); AST 20 U/L (14-36); Albumin 4.9 g/dL (3.5-5.0); Alkaline Phosphatase 85 U/L (38-126); Anion Gap 12 mmol/L; Blood Urea Nitrogen 10 mg/dL (7-17); Calcium 9.5 mg/dL (8.4-10.2); Carbon Dioxide 24 mmol/L (22-30); Chloride 105 mmol/L (98-107); Glucose 98 mg/dL (74-99); Lipase 53 U/L (23-300); Potassium 4.2 mmol/L (3.5-5.1); Sodium 141 mmol/L (137-145); Total Bilirubin 0.5 mg/dL (0.2-1.3); Total Protein 8.2 g/dL (6.3-8.2)
--- NOTE | 2018-11-19 09:30 | XR ---
EXAMINATION TYPE: XR abdomen 1V DATE OF EXAM: 11/19/2018 9:26 AM CLINICAL HISTORY: Abdominal pain, nausea and diarrhea TECHNIQUE: Single upright image of the abdomen is obtained. COMPARISON: 01/24/2014. FINDINGS: There are few air-fluid levels within nondilated small bowel is a small bowel measures up t o 2.6 cm. Tubal ligation clips are noted. Osseous structures are intact. Phlebolith is seen within th e right low pelvis. Lung bases are well aerated. No pneumoperitoneum. IMPRESSION: Scattered air-fluid levels within nondilated small bowel suggests ileus.
[2018-11-19 10:14] VITALS: BP 105/72; PULSE 92
== END 2018-11-19 10:38 | disposition home or self-care (01) ==
LOC: EC 08:09
DX: K52.9 Noninfective gastroenteritis and colitis, unspecified (principal); Z32.02 Encounter for pregnancy test, result negative; Z88.2 Allergy status to sulfonamides; Z98.51 Tubal ligation status
CPT/HCPCS: 36415; 80053; 83690; 85025; 81003; 81025; 87086; 74018; 99284; 96374; 96361; J2765

== ENCOUNTER → 2019-12-07 | Outpatient (CLI) | payer OTHER ==
--- NOTE | 2019-12-07 12:49 | US ---
EXAMINATION TYPE: US thyroid st tissue head/neck DATE OF EXAM: 12/07/2019 COMPARISON: Thyroid ultrasound August 21, 2007. CLINICAL HISTORY: E04.9 GOITER. GLAND SIZE: Right Lobe: 6.3 x 2.7 x 2.2 cm Overall Parenchyma: homogenous Left Lobe: 5.9 x 2.1 x 2.2 cm Overall Parenchyma: homogeneous Isthmus Thickness: 0.8 cm NODULES RIGHT: # of nodules measured on right: 0 LEFT: # of nodules measured on left: 0 ISTHMUS: # of nodules measured in the isthmus: 0 Bilateral neck scanned, no evidence of lymphadenopathy. Homogeneous enlarged thyroid gland currently without discrete nodule. IMPRESSION: Enlarged thyroid without concerning focal nodule.
== END | disposition home or self-care (01) ==
LOC: RADUSWWP 12:18
PROVIDERS: ATTEND Family Medicine
DX: E04.9 Nontoxic goiter, unspecified (principal)
CPT/HCPCS: 76536

== ENCOUNTER → 2022-08-30 | Outpatient (CLI) | payer OTHER ==
--- NOTE | 2022-09-12 10:15 | P.CEMON ---
7 Day Event monitor note: Patient wore an event monitor for 7 days from 08/30/2022 through 09/06/2022. Findings: Patient's baseline heart rate was normal sinus rhythm. There were no signficant atrial fibrillation, atrial flutter, or ventricular tachycardia episodes. There were no significant pauses greater than 2 seconds. There were 9 patient activated events corresponding with sinus rhythm and sinus tachycardia heart rates predominantly in the 110 and 130 range. Conclusions: Seven-day vent monitor showing normal sinus rhythm and sinus tachycardia. Patient activated events corresponding with sinus rhythm and sinus tachycardia heart rates in the 110 to 130 range.
--- NOTE | 2022-09-13 14:09 | EM ---
7 Day Event monitor note: Patient wore an event monitor for 7 days from 08/30/2022 through 09/06/2022. Findings: Patient's baseline heart rate was normal sinus rhythm. There were no significant atrial fibrillation, atrial flutter, or ventricular tachycardia episodes. There were no significant pauses greater than 2 seconds. There were 9 patient activated events corresponding with sinus rhythm and sinus tachycardia heart rates predominantly in the 110 and 130 range. Conclusions: Seven-day vent monitor showing normal sinus rhythm and sinus tachycardia. Patient activated events corresponding with sinus rhythm and sinus tachycardia heart rates in the 110 to 130 range. MTDD
== END | disposition home or self-care (01) ==
LOC: RADECHMAIN 12:27
PROVIDERS: ATTEND Internal Medicine Geriatric Medicine
DX: R00.0 Tachycardia, unspecified (principal); R00.1 Bradycardia, unspecified
CPT/HCPCS: 93270

== ENCOUNTER → 2023-01-17 | Outpatient (CLI) | payer OTHER ==
--- NOTE | 2023-01-17 16:15 | US ---
EXAMINATION TYPE: US thyroid st tissue head/neck DATE OF EXAM: 01/17/2023 COMPARISON: US thyroid 12/07/2019 CLINICAL INDICATION: Female, 32 years old with history of E04.9 GOITER; GLAND SIZE: Right Lobe: 6.4 x 2.0 x 2.9 cm Overall Parenchyma: heterogenous Left Lobe: 5.7 x 1.7 x 2.4 cm Overall Parenchyma: heterogenous Isthmus Thickness: 0.7 cm NODULES RIGHT: # of nodules measured on right: 0 LEFT: # of nodules measured on left: 0 ISTHMUS: # of nodules measured in the isthmus: 0 Bilateral neck scanned, no evidence of lymphadenopathy. IMPRESSION: Similar enlarged slightly heterogenous thyroid without discrete nodule.
== END | disposition home or self-care (01) ==
LOC: RADUSWWP 15:43
PROVIDERS: ATTEND Family Medicine
DX: E04.9 Nontoxic goiter, unspecified (principal)
CPT/HCPCS: 76536